=== PATIENT | male | born 1970 | race Caucasian/White ===

== ENCOUNTER 2016-10-26 12:05 | Emergency (ER) | payer BC ==
[2016-10-26] MEDS ORDERED: DUONEB INH ONE (12:11)
[2016-10-26] MEDS ORDERED: LORAZEPAM 2 MG/ML VIAL ONE (12:15)
[2016-10-26] MEDS ORDERED: METHYLPRED SOD SUCC 125 MG/2 ML VIAL ONE (12:42)
[2016-10-26] MEDS ORDERED: ACETAMINOPHEN 325 MG TAB ONE (14:00)
[2016-10-26] MEDS ORDERED: ASPIRIN 81 MG CHEW TAB ONE (16:27)
== END 2016-10-26 15:14 | disposition home or self-care (01) ==
LOC: ER 12:05
DX: J20.9 Acute bronchitis, unspecified (principal); Z87.891 Personal history of nicotine dependence
CPT/HCPCS: 36415; 71010; 80053; 82550; 83690; 83735; 84484; 85025; 85610; 85730; 87880; 93005; 96374; 96375